=== PATIENT | male | born 1960 | race Caucasian/White ===

== ENCOUNTER → 2017-04-17 | Outpatient (REF) | payer BC | LOC: M LAB REF 18:16 | DX: D23.11 Other benign neoplasm of skin of right eyelid, including canthus (principal) | CPT/HCPCS: 88305 ==

== ENCOUNTER 2019-01-14 07:58 | Day surgery (SDC) | payer BC, OTHER ==
[~2019-01-14] VITALS: Ht 172.7 cm; Wt 130.2 kg
[~2019-01-14 07:58] MED LIST: PROPOFOL 200 MG/20 ML VIAL As Ordered ONE
[2019-01-14] MEDS ORDERED: NS 1,000 ML IV ONE (09:30)
--- NOTE | 2019-01-14 10:06 | ROOR ---
Patient Name: Robinson Geronimo Procedure Date: 01/14/2019 9:25 AM Date of : 1960 Age: 58 Room: [facility] Gender: Male Note Status: Finalized Procedure: Colonoscopy Indications: High risk colon cancer surveillance: Personal history of colonic polyps Providers: Kt Stewart MD Referring MD: Cesar Garcia MD Requesting Provider: Medicines: Monitored Anesthesia Care Complications: No immediate complications. Procedure: Pre-Anesthesia Assessment: - Prior to the procedure, a History and Physical was performed, and patient medications and allergies were reviewed. The patient is competent. The risks and benefits of the procedure and the sedation options and risks were discussed with the patient. All questions were answered and informed consent was obtained. Patient identification and proposed procedure were verified by the physician, the nurse and the anesthesiologist in the procedure room. Mental Status Examination: alert and oriented. Airway Examination: normal oropharyngeal airway and neck mobility. Respiratory Examination: clear to auscultation. CV Examination: normal. Prophylactic Antibiotics: The patient does not require prophylactic antibiotics. Prior Anticoagulants: The patient has taken no previous anticoagulant or antiplatelet agents. ASA Grade Assessment: III - A patient with severe systemic disease. After reviewing the risks and benefits, the patient was deemed in satisfactory condition to undergo the procedure. The anesthesia plan was to use monitored anesthesia care (MAC). Immediately prior to administration of medications, the patient was re-assessed for adequacy to receive sedatives. The heart rate, respiratory rate, oxygen saturations, blood pressure, adequacy of pulmonary ventilation, and response to care were monitored throughout the procedure. The physical status of the patient was re-assessed after the procedure. The Colonoscope was introduced through the anus and advanced to the terminal ileum, with identification of the appendiceal orifice and IC valve. The colonoscopy was performed without difficulty. The patient tolerated the procedure well. The quality of the bowel preparation was good. The terminal ileum, ileocecal valve, appendiceal orifice, and rectum were photographed. Scope insertion time was 3 minutes. Scope withdrawal time was 10 minutes. The total duration of the procedure was 14 minutes. Findings: The perianal and digital rectal examinations were normal. The terminal ileum appeared normal. A 4 mm polyp was found in the transverse colon. The polyp was sessile. The polyp was removed with a cold snare. Resection was complete, but the polyp tissue was not retrieved. The polyp tissue was small and not found on suction. Multiple small and large-mouthed diverticula were found in the sigmoid colon. Lenora-diverticular erythema was seen. There was no evidence of diverticular bleeding. Non-bleeding external and internal hemorrhoids were found during retroflexion. The hemorrhoids were medium-sized. Impression: - The examined portion of the ileum was normal. - One 4 mm polyp in the transverse colon, removed with a cold snare. Complete resection. Polyp tissue not retrieved. - Moderate diverticulosis in the sigmoid colon. Lenora-diverticular erythema was seen. There was no evidence of diverticular bleeding. - Non-bleeding external and internal hemorrhoids. Recommendation: - Patient has a contact number available for emergencies. The signs and symptoms of potential delayed complications were discussed with the patient. Return to normal activities tomorrow. Written discharge instructions were provided to the patient. - High fiber diet. - Continue present medications. - Use fiber, for example Citrucel, Fibercon, Konsyl or Metamucil. - Return to primary care physician. - Repeat colonoscopy in 5 years for surveillance. - Return to GI clinic in 5 years. Kt Stewart MD Kt Stewart MD 01/14/2019 10:05:31 AM Electronically signed by Kt Stewart MD Number of Addenda: 0 Note Initiated On: 01/14/2019 9:25 AM Estimated Blood Loss: Estimated blood loss was minimal.
[2019-01-14 10:15] VITALS: BP 149/90
== END 2019-01-14 10:27 | disposition home or self-care (01) ==
LOC: M OPP 07:58
PROVIDERS: ATTEND Internal Medicine Gastroenterology
DX: Z12.11 Encounter for screening for malignant neoplasm of colon (principal); Z86.010 Personal history of colon polyps; K64.8 Other hemorrhoids; D12.3 Benign neoplasm of transverse colon; K57.30 Diverticulosis of large intestine without perforation or abscess without bleeding; G47.30 Sleep apnea, unspecified; Z85.048 Personal history of other malignant neoplasm of rectum, rectosigmoid junction, and anus

== ENCOUNTER → 2019-02-22 | Outpatient (REF) | LOC: M LAB LCGH 13:33 | PROVIDERS: ATTEND Physician Assistant | DX: D48.5 Neoplasm of uncertain behavior of skin (principal) ==

== ENCOUNTER → 2020-10-05 | Outpatient (REF) | payer OTHER | LOC: M LAB REF 13:53 | PROVIDERS: ATTEND Physician Assistant | DX: D04.4 Carcinoma in situ of skin of scalp and neck (principal) ==

== ENCOUNTER → 2021-07-19 | Outpatient (REF) | payer OTHER | LOC: M SFHCDERM 10:21 | PROVIDERS: ATTEND Nurse Practitioner Family | DX: L57.0 Actinic keratosis (principal) ==

== ENCOUNTER → 2021-10-30 | Outpatient (REF) | payer OTHER, BC | LOC: M SFHCDERM 10:03 | PROVIDERS: ATTEND Physician Assistant | DX: L57.0 Actinic keratosis (principal) ==

== ENCOUNTER → 2023-10-29 | Outpatient (REF) | payer OTHER | LOC: M SFHCDERM 17:15 | PROVIDERS: ATTEND Physician Assistant | DX: C44.311 Basal cell carcinoma of skin of nose (principal); D22.39 Melanocytic nevi of other parts of face ==

== ENCOUNTER → 2024-06-29 | Outpatient (CLI) | payer BC ==
[~2024-06-29] MED LIST changes: +PROHANCE 279.3MG/ML 15ML VIAL As Ordered ONE; +PROHANCE 279.3MG/ML 5ML VIAL As Ordered ONE; -PROPOFOL 200 MG/20 ML VIAL As Ordered ONE
== END ==
LOC: M RAD 10:04
PROVIDERS: ATTEND Physician Assistant
DX: R97.20 Elevated prostate specific antigen [PSA] (principal)

== ENCOUNTER → 2024-12-21 | Outpatient (REF) | payer BC | LOC: M SFHCDERM 07:41 | PROVIDERS: ATTEND Dermatology | DX: L57.0 Actinic keratosis (principal) ==

== ENCOUNTER → 2025-03-10 | Outpatient (CLI) | payer BC | LOC: M PLALAB 11:11 | PROVIDERS: ATTEND Urology | DX: C61 Malignant neoplasm of prostate (principal) ==